=== PATIENT | male | born 1940 | race Caucasian/White ===

== ENCOUNTER → 2016-08-17 | Outpatient (CLI) | payer OTHER, BC ==
[~2016-08-17] MED LIST: ACTEMRA162 MG/0.9 SC; ADVAIR 250/501 DISK IH; ALLEGRA ALLERG180 MG PO; ALLEGRA180 MG; ALPH E PO; ASPIR 8181 M1 PO; ASPIR 8181 MG PO; ASTEPRO 0.15%30 ML BOTH NARES; COENZYME Q10100 M2 PO; FENOFIBRATE160 M1 PO; FISH OIL 1,0001 EACH PO; FISH OIL 1,4001 EACH PO; FLONASE16 G1 BOTH NARES; FLOVENT 44120 INHALA IH; FLOVENT 44120 INHALA MC; FOLIC ACID1 MG PO; GLUCOPHAGE1000 M1 PO; HUMIRA20 MG/0.4 SQ; LIPITOR80 MG PO; METOPROLOL TART50 MG PO; NITROSTAT0.4 MG SL; OSTEO BI-FLEX1 EAC3 PO; PRINIVIL10 MG PO; TOPROL XL50 MG PO; TREXALL15 MG PO; VITAMIN E400 UNI1 PO; VITAMIN E400 UNIT PO; VYTORIN 10-801 EACH PO; ZYRTEC10 M2 PO
[2016-08-17 09:51] LABS: MCH 31.5 PG (29.0-34.0); MCHC 32.7 G/DL (30.0-36.0); MCV 96.4 FL (86-99); PLATELET COUNT 291 K/uL (156-360); RBC DIS.WIDTH-CV 13.8 % (11.8-14.6); RBC DIS.WIDTH-SD 47.9 % (39-53); RED BLOOD COUNT 4.67 M/uL (4.00-5.50)
[2016-08-17 10:00] LABS: INTER. NORMALIZED RATIO 1.2; PROTHROMBIN TIME 12.3 (9.2-11.2)
== END | disposition home or self-care (01) ==
LOC: OPR 09:11 → EDSTATUS 10:00
PROVIDERS: Radiology Diagnostic Radiology
PROC: 0BBJ3ZX Excision of Left Lower Lung Lobe, Percutaneous Approach, Diagnostic (ICD-10-PCS; principal; 2016-08-17)
DX: C34.32 Malignant neoplasm of lower lobe, left bronchus or lung (principal)
CPT/HCPCS: 71010; 77012; 85027; 85610; 85730; 87070; 87075; 87102; 87116; 87205; 87206; 88305; 88341 TC; 88342 TC; J3010

== ENCOUNTER → 2016-09-01 | Outpatient (CLI) | payer OTHER, BC | END | disposition home or self-care (01) | LOC: RAD 10:59 → NUC 10:59 | DX: R91.8 Other nonspecific abnormal finding of lung field (principal); Z87.891 Personal history of nicotine dependence; Z85.118 Personal history of other malignant neoplasm of bronchus and lung | CPT/HCPCS: 78582; 78598; A9540; A9567 ==

== ENCOUNTER 2016-09-15 12:41 | Day surgery (SDC) | payer OTHER, BC ==
[~2016-09-15] VITALS: Ht 174 cm; Wt 99.8 kg
[2016-09-15 13:00] VITALS: BP 123/75
[2016-09-15 13:17] LABS: BASOPHIL COUNT 0.1 K/uL (0-0.1); EOSINOPHIL COUNT 0.4 K/uL (0-0.3); HEMATOCRIT 45.5 % (38.0-50.0); IMMATURE GRANULOCYTE (%) 0.3 % (0.0-0.7); LYMPHOCYTE COUNT 5.2 K/uL (1.0-2.8); MCH 31.3 PG (29.0-34.0); MCHC 32.7 G/DL (30.0-36.0); MCV 95.6 FL (86-99); MEAN PLAT.VOLUME 9.7 uM^3 (9.0-12.4); MONOCYTE (%) 9.1 % (3-12); MONOCYTE COUNT 1.2 K/uL (0-0.8); NEUTROPHIL (%) 46.9 % (45-76); PLATELET COUNT 263 K/uL (156-360); RBC DIS.WIDTH-CV 13.4 % (11.8-14.6); RBC DIS.WIDTH-SD 47.6 % (39-53); RED BLOOD COUNT 4.76 M/uL (4.00-5.50); WHITE BLOOD COUNT 12.9 K/uL (4.1-10.2)
[2016-09-15 13:44] LABS: ALKALINE PHOSPHATASE 32 IU/L (3-129); ANION GAP 8 MEQ/L (2-14); CHLORIDE 104 MEQ/L (99-109); GFR ESTIMATE (CALCULATED) 53 mL/min/; GLUCOSE 99 mg/dL (70-99); POTASSIUM 4.2 MEQ/L (3.7-5.4); SAMPLE HEMOLYSIS CHECK 0; SAMPLE ICTERIC CHECK 0; SAMPLE LIPEMIA CHECK 0; SODIUM 138 MEQ/L (136-147); TOTAL BILIRUBIN 0.8 MG/DL (0.0-1.0); UREA NITROGEN (BUN) 18 mg/dL (9-23)
[2016-09-15 13:50] LABS: INTER. NORMALIZED RATIO 1.2; PROTHROMBIN TIME 12.1 (9.2-11.2)
[2016-09-15 19:03] VITALS: BP 122/79
[2016-09-15 20:00] VITALS: BP 123/74
[2016-09-15 20:51] VITALS: BP 157/90
== END 2016-09-15 20:45 | disposition home or self-care (01) ==
LOC: SDC 12:41
PROVIDERS: Thoracic Surgery (Cardiothoracic Vascular Surgery)
PROC: 07B74ZX Excision of Thorax Lymphatic, Percutaneous Endoscopic Approach, Diagnostic (ICD-10-PCS; principal; 2016-09-15)
DX: C34.32 Malignant neoplasm of lower lobe, left bronchus or lung (principal); Z87.891 Personal history of nicotine dependence; J44.9 Chronic obstructive pulmonary disease, unspecified; E11.9 Type 2 diabetes mellitus without complications; I10 Essential (primary) hypertension; Z79.84 Long term (current) use of oral hypoglycemic drugs; Z95.1 Presence of aortocoronary bypass graft; Z95.810 Presence of automatic (implantable) cardiac defibrillator
CPT/HCPCS: 71010; 71020; 80053; 85025; 85610; 86850; 86900; 86901; 88305; 94640; J0690; J1170; J1940; J3010

== ENCOUNTER 2016-12-24 10:04 | Emergency (ER) | payer OTHER, BC ==
[~2016-12-24] VITALS: Ht 170.2 cm; Wt 86.6 kg
[2016-12-24 10:42] LABS: HEMATOCRIT 40.7 % (38.0-50.0); MCH 29.2 PG (29.0-34.0); MCHC 31.7 G/DL (30.0-36.0); MCV 92.1 FL (86-99); MEAN PLAT.VOLUME 9.3 uM^3 (9.0-12.4); PLATELET COUNT 225 K/uL (156-360); RBC DIS.WIDTH-CV 17.5 % (11.8-14.6); RED BLOOD COUNT 4.42 M/uL (4.00-5.50)
[2016-12-24 10:52] LABS: CHLORIDE 107 mEq/L (99-109); POTASSIUM 4.8 mEq/L (3.7-5.4); SODIUM 139 mEq/L (136-147)
[2016-12-24 10:54] LABS: GLUCOSE 94 mg/dL (70-99)
[2016-12-24 10:55] LABS: ANION GAP 7 MEQ/L (2-14)
[2016-12-24 10:58] LABS: GFR ESTIMATE (CALCULATED) > 59 mL/min/; UREA NITROGEN (BUN) 14 mg/dL (9-23)
[2016-12-24 11:03] LABS: TROP-I INTERPRETATION NEGATIVE; TROPONIN-I < 0.01 ng/mL (0.0-0.30)
[2016-12-24 14:05] VITALS: BP 103/70
== END 2016-12-24 14:29 | disposition home or self-care (01) ==
LOC: EME 10:04
DX: E86.0 Dehydration (principal); C34.90 Malignant neoplasm of unspecified part of unspecified bronchus or lung; C06.9 Malignant neoplasm of mouth, unspecified; Z92.3 Personal history of irradiation; I10 Essential (primary) hypertension; E11.9 Type 2 diabetes mellitus without complications; E78.5 Hyperlipidemia, unspecified; I25.2 Old myocardial infarction; Z95.1 Presence of aortocoronary bypass graft; I45.2 Bifascicular block; Z87.891 Personal history of nicotine dependence
CPT/HCPCS: 71020; 80048; 84484; 85027; 93005; 99281; 99285; J7030

== ENCOUNTER 2016-12-30 08:38 | Emergency (ER) | payer OTHER, BC ==
[~2016-12-30] VITALS: Ht 172.7 cm; Wt 88.6 kg
[2016-12-30 09:18] LABS: CHLORIDE 106 mEq/L (99-109); POTASSIUM 3.9 mEq/L (3.7-5.4); SODIUM 141 mEq/L (136-147)
[2016-12-30 09:20] LABS: GLUCOSE 104 mg/dL (70-99)
[2016-12-30 09:22] LABS: ANION GAP 9 MEQ/L (2-14)
[2016-12-30 09:24] LABS: GFR ESTIMATE (CALCULATED) > 59 mL/min/
[2016-12-30 09:25] LABS: UREA NITROGEN (BUN) 14 mg/dL (9-23)
[2016-12-30 09:32] LABS: TROP-I INTERPRETATION NEGATIVE; TROPONIN-I < 0.01 ng/mL (0.0-0.30)
[2016-12-30 09:44] LABS: HEMATOCRIT 35.2 % (38.0-50.0); MCH 29.4 PG (29.0-34.0); MCV 89.3 FL (86-99); RBC DIS.WIDTH-CV 17.4 % (11.8-14.6); RBC DIS.WIDTH-SD 57.1 % (39-53); RED BLOOD COUNT 3.94 M/uL (4.00-5.50); WHITE BLOOD COUNT 8.1 K/uL (4.1-10.2)
[2016-12-30 10:42] LABS: IMM.PLATELET FRACTION 0 (1-7)
[2016-12-30 10:44] LABS: PLAT.SUFFICIENCY VERY DECREASED; PLATELET COUNT 0 K/uL (156-360)
[2016-12-30 12:39] VITALS: BP 106/62
[2016-12-30 14:01] VITALS: BP 99/59
[2016-12-30 14:30] VITALS: BP 112/70
[2016-12-30 15:08] LABS: IMM.RETIC FRACTION 18.2 % (3-19); RETIC HGB EQUIVALENT 33.8 (28-36); RETICULOCYTE COUNT 1.9 % (0.5-1.8)
[2016-12-30 15:34] LABS: ALKALINE PHOSPHATASE 50 IU/L (3-129)
== END 2016-12-30 14:44 | disposition short-term general hospital (02) ==
LOC: EME → EDBD 08:38 → EME 14:44
PROVIDERS: Emergency Medicine
PROC: 30233R1 Transfusion of Nonautologous Platelets into Peripheral Vein, Percutaneous Approach (ICD-10-PCS; principal; 2016-12-30)
DX: D69.6 Thrombocytopenia, unspecified (principal); C02.9 Malignant neoplasm of tongue, unspecified; J44.9 Chronic obstructive pulmonary disease, unspecified; I10 Essential (primary) hypertension; E78.5 Hyperlipidemia, unspecified; Z85.118 Personal history of other malignant neoplasm of bronchus and lung; Z95.1 Presence of aortocoronary bypass graft; Z95.810 Presence of automatic (implantable) cardiac defibrillator; Z87.891 Personal history of nicotine dependence
CPT/HCPCS: 71010; 80048; 81003; 83615 90; 83625 90; 84075; 84450; 84460; 84484; 85027; 85045; 85384; 85610; 85730; 86900; 86901; 93005; 99281; 99285; J7030; P9035